=== PATIENT | female | born 1970 | race Hispanic/Latino ===

== ENCOUNTER 2016-08-29 09:49 | Emergency (ER) | payer MEDICAID ==
[2016-08-29] MEDS ORDERED: NORCO 5/325 PO ONE ×2 (15:15→16:41)
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
--- NOTE | 2016-08-29 16:40 | XRay Report ---
FINAL REPORT EXAM: XR HIP 2-3V LT HISTORY: s/p fall ? fracture severe pain TECHNIQUE: Left hip and AP pelvis PRIORS: None. FINDINGS: No fracture identified. No dislocation seen. Femoral head maintains a normal contour. Joint spaces within normal limits. Adjacent bony pelvis is unremarkable IMPRESSION: Negative hip series
--- NOTE | 2016-08-29 16:55 | XRay Report ---
FINAL REPORT EXAM: XR SPINE LUMBOSACRAL 2-3V HISTORY: s/p fall c/o severe lower back pain TECHNIQUE: Lumbar spine 2 views PRIORS: None. FINDINGS: Vertebral bodies demonstrate normal height and alignment. The disc spaces are within normal limits. There is no evidence of spondylolisthesis. Transverse and spinous processes are intact SI joints are unremarkable. IMPRESSION: Negative lumbar spine series
--- NOTE | 2016-08-29 16:59 | XRay Report ---
FINAL REPORT EXAM: XR RIBS UNI W PA CHEST 3 LT HISTORY: s/p fall ? fracture ribs 10-12? TECHNIQUE: Right ribs 4 views PRIORS: None. FINDINGS: No rib fracture identified. No bony lesions seen. No evidence of pneumothorax or pleural effusion within the right nathaniel thorax. Otherwise no acute findings. IMPRESSION: Negative rib series
[2016-08-29 17:42] VITALS: BP 120/81
== END 2016-08-29 17:41 | disposition home or self-care (01) ==
LOC: ED 09:49
DX: M25.552 Pain in left hip (principal); M54.5 Low back pain; F20.9 Schizophrenia, unspecified; F17.200 Nicotine dependence, unspecified, uncomplicated; Z90.710 Acquired absence of both cervix and uterus; Z90.49 Acquired absence of other specified parts of digestive tract; Z98.890 Other specified postprocedural states; Z88.6 Allergy status to analgesic agent; Z79.899 Other long term (current) drug therapy; W01.0XXA Fall on same level from slipping, tripping and stumbling without subsequent striking against object, initial encounter; Y93.89 Activity, other specified; Y99.0 Civilian activity done for income or pay; Y92.69 Other specified industrial and construction area as the place of occurrence of the external cause
CPT/HCPCS: 72100

== ENCOUNTER 2017-05-16 09:27 | Emergency (ER) | payer MEDICAID ==
[2017-05-16 10:32] VITALS: BP 130/58
--- NOTE | 2017-05-16 10:54 | XRay Report ---
RIGHT SHOULDER, 3 VIEWS: HISTORY: right shoulder pain. Normal bone mineralization. No acute osseous injury or joint pathology is detected. The soft tissues are unremarkable. IMPRESSION: Right shoulder within normal limits.
[2017-05-16] MEDS ORDERED: TYLENOL PO ONE (14:22)
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
== END 2017-05-16 15:00 | disposition home or self-care (01) ==
LOC: ED 09:27
DX: S46.911A Strain of unspecified muscle, fascia and tendon at shoulder and upper arm level, right arm, initial encounter (principal); X50.9XXA Other and unspecified overexertion or strenuous movements or postures, initial encounter; Y93.89 Activity, other specified; Y92.89 Other specified places as the place of occurrence of the external cause; Y99.8 Other external cause status

== ENCOUNTER 2017-07-04 09:33 | Outpatient (CLI) | payer MEDICAID ==
--- NOTE | 2017-07-05 08:20 | Magnetic Resonance Report ---
MRI UPPER EXTREMITY JOINT WITHOUT CONTRAST HISTORY: Pain in right shoulder. TECHNIQUE: Multisequence, multi-planer MRI without contrast through the right shoulder. COMPARISON: Right shoulder films dated 05/16/17. FINDINGS: A skin marker is placed in the posterior-lateral right shoulder overlying the distal infraspinatus tendon. This is presumably the site of pain for the patient. The distal supraspinatus and infraspinatus tendons are abnormal. An intrasubstance tear is suspected in the distal supraspinatus tendon at its insertion site on the proximal right humerus. A partial thickness tear along the articular surface of the distal infraspinatus tendon is suspected and estimated at greater than 50%. A pinhole full-thickness tear in this area is difficult to exclude. No large full thickness tear with tendon retraction. The subscapularis tendon and teres minor tendons are within normal limits. The biceps tendon and its anchor upon the superior labrum are within normal limits. No gross labral tear although arthrogram was not performed. A small acromial spur is identified which abuts the musculotendinous junction of the distal supraspinatus tendon. Consider impingement syndrome. The bone marrow signal is within normal limits. No evidence for fracture or bone lesion. Minimal osteoarthritic changes are identified at the glenohumeral joint and acromioclavicular joint. No hypertrophic spurring. Small joint effusion and trace fluid in the subdeltoid bursa and subscapular recess. IMPRESSION: Abnormal distal supraspinatus and infraspinatus tendons as described. An intrasubstance tear of the distal supraspinatus is suspected. A partial thickness tear of the distal infraspinatus tendon is suspected. Minimal osteoarthritic changes. Small acromial spur. Small joint effusion.
== END 2017-07-04 09:34 | disposition home or self-care (01) ==
LOC: MRI 09:33
PROVIDERS: ATTEND Orthopaedic Surgery
DX: M19.011 Primary osteoarthritis, right shoulder (principal); M25.811 Other specified joint disorders, right shoulder

== ENCOUNTER 2017-07-21 09:06 | Day surgery (SDC) | payer MEDICAID ==
[~2017-07-21 09:06] MED LIST: ANCEF/STERILE WATER 2 GM/20 ML IV NR; MARCAINE-EPI 0.25%-1:200,000 INFILTRATI ONE
[2017-07-21] MEDS ORDERED: SUBLIMAZE ONE (09:47)
[2017-07-21] MEDS ORDERED: DIPRIVAN 10 MG/ML IV ONE (09:47)
[2017-07-21] MEDS ORDERED: XYLOCAINE MPF 2% ONE (09:50)
[2017-07-21] MEDS ORDERED: ZEMURON IV ONE (09:50)
[2017-07-21] MEDS ORDERED: SUBLIMAZE IV NR (09:59)
[2017-07-21] MEDS ORDERED: NACL 0.9% 1000 ML 1,000 ML IV SCH (10:00)
[2017-07-21] MEDS ORDERED: PEPCID PO NR (10:00)
[2017-07-21] MEDS ORDERED: VERSED IV NR (10:00)
[2017-07-21] MEDS ORDERED: TRANSDERM-SCOP TD NR (10:08)
--- NOTE | 2017-07-21 10:08 | Anesthesia Day of Surgery ---
Anesthesia Day of Surgery - Day of Surgery Patient Examined: Yes Patient is NPO: Yes Beta Blockers: No
--- NOTE | 2017-07-21 10:09 | Anesthesia Consultation ---
Anesthesia Consult and Med Hx Date of service: 07/21/17 - Airway Anesthetic Teeth Evaluation: Poor (multiple missing, denies loose teeth) ROM Head & Neck: Adequate Mental/Hyoid Distance: Adequate Mallampati Class: Class II Intubation Access Assessment: Probably Good - Pulmonary Exam CTA: Yes - Cardiac Exam Cardiac Exam: RRR - Pre-Operative Health Status ASA Pre-Surgery Classification: ASA2 Proposed Anesthetic Plan: General Nerve Block: IS - Pulmonary Hx Smoking: Yes (1 PPD X 10 YRS) Hx Asthma: No COPD: No Hx Pneumonia: Yes (2015) Hx Sleep Apnea: No (KARLEY PRE SCREEN LOW RISK.) - Cardiovascular System Hx Hypertension: No - Central Nervous System Hx Back Pain: Yes Hx Psychiatric Problems: Yes (ANXIETY) - Endocrine Hx End Stage Renal Disease: No - Hematic Hx Anemia: Yes (NOT RECENT) - Other Systems Hx Substance Use: No (DENIES) Hx Cancer: No - Additional Comments Anesthesia Medical History Comments: PONV
[2017-07-21] MEDS ORDERED: ZOFRAN IV PRN (10:10)
[2017-07-21] MEDS ORDERED: PERCOCET 5/325 PO PRN (10:10)
[2017-07-21] MEDS ORDERED: SUBLIMAZE IV PRN (10:10)
[2017-07-21] MEDS ORDERED: MARCAINE 0.5% 30 ML INFILTRATI ONE (10:21)
[2017-07-21] MEDS ORDERED: DECADRON ONE (10:21)
[2017-07-21] MEDS ORDERED: XYLOCAINE 1% 20 mL ONE (10:22)
[2017-07-21] MEDS ORDERED: ADRENALIN ONE (10:25)
[2017-07-21] MEDS ORDERED: MARCAINE 0.25% INFILTRATI ONE (10:25)
[2017-07-21] MEDS ORDERED: DEPO-MEDROL ONE ×2 (10:26)
[2017-07-21] MEDS ORDERED: NEO SYNEPHRINE/NS Syringe(OR USE) IV ONE ×2 (11:48→12:25)
[2017-07-21] MEDS ORDERED: NACL 0.9% IR ONE (11:54)
[2017-07-21] MEDS ORDERED: ADRENALIN IV ONE (11:54)
[2017-07-21] MEDS ORDERED: ZOFRAN ONE (11:59)
[2017-07-21] MEDS ORDERED: ePHEDrine SULFATE ONE (12:28)
[2017-07-21] MEDS ORDERED: DILAUDID IV PRN (13:33)
--- NOTE | 2017-07-21 13:34 | Post Anesthesia Evaluation ---
- Post Anesthesia Evaluation Patient Participated: Yes Airway Patent: Yes Stable Respiratory Function: Yes Nausea/Vomiting: No Temp > 96.8F: Yes Pain Manageable: Yes Adequeate Hydration: Yes Anesthesia Complications: No Patient on Ventilator: No
--- NOTE | 2017-07-21 13:48 | Procedure Note ---
Date of procedure: 07/21/17 Pre-op diagnosis: impingement syndrome greater than 50% partial-thickness tear rotator cuff t Post-op diagnosis: same Procedure: Arthroscopy right shoulder subacromial decompression and repair torn rotator cuff tendon Procedure The patient was brought to the OR after being given a scalene nerve block for postop pain management she was placed on the OR table in the supine position following induction and intubation by anesthesia the patient was placed in the left lateral decubitus position at which point the right shoulder and upper arm were prepped and draped in the usual sterile manner a timeout procedure was done to identify the patient and the correct operative site Routine arthroscopic portals were made about the shoulder joint The arthroscope was inserted into the subacromial space examination carried out she was noted to have impingement at the acromioclavicular joint as well as 60% full- thickness cuff tear near the insertion into the greater tuberosity. The arthroscopic shaver and tissue ablator was used to remove bursal tissue followed by subacromial decompression using the acromionizer. The partial- thickness rotator cuff tear was converted to a full-thickness tear and was subsequently repaired using heavy FiberWire tape and suture anchors there no major tension noted at the repaired site, the arm was taken thru full range of motion followed by removal of the arthroscope. Routine postop dressings were applied the patient tolerated the procedure there were no complications Anesthesia: LIGIA regional Surgeon: NEL GALINDO Manufacturer'S Service Representative: ESVIN MEJIA Estimated blood loss: minimal Pathology: none Condition: stable Disposition: PACU
[2017-07-21 15:31] VITALS: BP 109/64
== END 2017-07-21 15:10 | disposition home or self-care (01) ==
LOC: OR 09:06
PROVIDERS: ATTEND Orthopaedic Surgery
DX: M75.41 Impingement syndrome of right shoulder (principal); M75.111 Incomplete rotator cuff tear or rupture of right shoulder, not specified as traumatic; F17.210 Nicotine dependence, cigarettes, uncomplicated; F41.9 Anxiety disorder, unspecified; Z88.8 Allergy status to other drugs, medicaments and biological substances
CPT/HCPCS: 29826; 29827; A4217; C1713; J0171; J0690; J1030; J1100; J1170; J2250; J2370; J2405; J2704; J3010; J7030

== ENCOUNTER 2017-07-24 08:54 | Emergency (ER) | payer MEDICAID ==
--- NOTE | 2017-07-24 10:32 | XRay Report ---
RIGHT SHOULDER, 2 views: HISTORY: right shoulder pain. Normal bone mineralization. No acute osseous injury or joint pathology is detected. The soft tissues are unremarkable. Previous rotator cuff repair changes are noted. IMPRESSION: Right shoulder within normal limits.
[2017-07-24] MEDS ORDERED: DILAUDID IV ONE (11:45)
[2017-07-24] MEDS ORDERED: ZOFRAN IV ONE (11:45)
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
[2017-07-24] MEDS ORDERED: SUBLIMAZE IV ONE (13:25)
[2017-07-24 14:51] VITALS: BP 108/71
== END 2017-07-24 14:52 | disposition home or self-care (01) ==
LOC: ED 08:54
DX: S43.421A Sprain of right rotator cuff capsule, initial encounter (principal); M25.511 Pain in right shoulder; F20.9 Schizophrenia, unspecified; G89.29 Other chronic pain; F17.200 Nicotine dependence, unspecified, uncomplicated; Z88.8 Allergy status to other drugs, medicaments and biological substances; W17.89XA Other fall from one level to another, initial encounter; Y93.89 Activity, other specified; Y92.89 Other specified places as the place of occurrence of the external cause; Y99.8 Other external cause status
CPT/HCPCS: 73030; 96365; 96375; 99284; J1170; J2405; J3010

== ENCOUNTER 2017-11-23 13:03 | Outpatient (CLI) | payer MEDICAID ==
--- NOTE | 2017-11-24 11:19 | Magnetic Resonance Report ---
FINAL REPORT PROCEDURE: MR UE JOINT RT WO CON TECHNIQUE: Magnetic resonance imaging of the RIGHT shoulder was performed using standard pulse sequences. CPT 90071 HISTORY: PAIN IN RIGHT SHOULDER COMPARISON: No prior studies are available for comparison. FINDINGS: There is susceptibility artifact at the lateral humeral head due to hardware. Although there is artifact related to the hardware, no full-thickness rotator cuff tear is identified. There is thickening of the distal subscapularis tendon, suggesting tendinopathy. There is limited evaluation of the long head of the biceps tendon intra-articular portion, however no gross tear is seen. There is no glenohumeral joint effusion. There is limited evaluation of the glenoid labrum. Osteoarthritic changes of the acromioclavicular joint are present, with capsular hypertrophy and mild adjacent marrow edema. IMPRESSION: There has been prior surgical repair, with resultant artifact from hardware. However there is no gross evidence of full-thickness rotator cuff tear. If clinically indicated, further evaluation of the rotator cuff could be obtained with MRI arthrogram. Acromioclavicular joint osteoarthritic changes are noted.
== END 2017-11-23 13:04 | disposition home or self-care (01) ==
LOC: MRI 13:03
PROVIDERS: ATTEND Orthopaedic Surgery
DX: M19.011 Primary osteoarthritis, right shoulder (principal)

== ENCOUNTER 2017-12-08 13:23 | Emergency (ER) | payer MEDICAID ==
[2017-12-08 13:55] VITALS: BP 101/58
--- NOTE | 2017-12-08 14:11 | XRay Report ---
ROUTINE CHEST, TWO VIEWS: HISTORY: Shortness of breath. The trachea, heart, mediastinal contour, lung chandler and bony thorax are unremarkable. IMPRESSION: Unremarkable chest x-ray.
[2017-12-08 14:38] LABS: Basophils # (Auto) 0.1 K/mm3 (0.0-0.1); Basophils % (Auto) 1.3 % (0.0-1.8); Eosinophils % (Auto) 0.5 % (0.0-4.3); Hematocrit 44.6 % (30.3-42.9); Hemoglobin 14.8 gm/dl (10.1-14.3); Lymphocytes # (Auto) 2.5 K/mm3 (1.2-5.4); Lymphocytes % (Auto) 50.3 % (13.4-35.0); Mean Corpuscular HGB Conc 33 % (30-34); Mean Corpuscular Hemoglobin 31 pg (28-32); Mean Corpuscular Volume 92 fl (79-97); Monocytes # (Auto) 0.3 K/mm3 (0.0-0.8); Monocytes % (Auto) 5.1 % (0.0-7.3); Platelet Count 131 K/mm3 (140-440); Red Blood Count 4.84 M/mm3 (3.65-5.03); Red Cell Distribution Width 13.8 % (13.2-15.2)
[2017-12-08 14:49] LABS: BUN/Creatinine Ratio 23; Blood Urea Nitrogen 9 mg/dL (7-17); Calcium 8.9 mg/dL (8.4-10.2); Hemolysis Index 13
== END 2017-12-08 17:19 | disposition left against medical advice (07) ==
LOC: ED 13:23
DX: R06.02 Shortness of breath (principal); Z53.21 Procedure and treatment not carried out due to patient leaving prior to being seen by health care provider
CPT/HCPCS: 36415; 71046; 80048; 84484; 85025; 93005; 93010

== ENCOUNTER 2018-07-04 12:06 | Emergency (ER) | payer MEDICAID ==
[2018-07-04] MEDS ORDERED: ZOFRAN IV ONE (12:27)
[2018-07-04] MEDS ORDERED: MORPHINE IV ONE ×2 (12:27→12:55)
[2018-07-04] MEDS ORDERED: PERCOCET 5/325 PO ONE (12:28)
[2018-07-04] MEDS ORDERED: DECADRON IV ONE (12:28)
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
[2018-07-04 14:30] VITALS: BP 113/67
--- NOTE | 2018-07-04 14:37 | XRay Report ---
LUMBOSACRAL SPINE, FIVE VIEWS: HISTORY: Back pain. Mild dextroscoliosis of the lumbar spine is noted. Mild disc space narrowing is identified at T11-12. Mild diffuse facet arthropathy in the lumbar region. No evidence for fracture or subluxation. Oblique views show patent foramina and normal apophyseal joint alignment. IMPRESSION: Mild scoliosis and degenerative changes. No significant change is appreciated since 08/29/16.
== END 2018-07-04 14:55 | disposition home or self-care (01) ==
LOC: ED 12:06
DX: M54.40 Lumbago with sciatica, unspecified side (principal); G89.29 Other chronic pain; F20.9 Schizophrenia, unspecified; F60.9 Personality disorder, unspecified; Z90.710 Acquired absence of both cervix and uterus; F17.200 Nicotine dependence, unspecified, uncomplicated; Z79.899 Other long term (current) drug therapy; Z88.6 Allergy status to analgesic agent
CPT/HCPCS: 72110; 96374; 96375; 96376; 99284; J1100; J2270; J2405